=== PATIENT | female | born 1975 | race Caucasian/White ===

== ENCOUNTER 2017-02-02 12:53 | Day surgery (SDC) | payer OTHER ==
[~2017-02-02] VITALS: Ht 165.1 cm; Wt 64.4 kg
[2017-02-02] VITALS (9 sets, daily range): BP systolic 98–112; BP diastolic 36–77; PULSE 54–66; TEMP 97–98.1
[~2017-02-02 12:53] MED LIST: CARAFATE 1GM1 G PO; CLARITIN 1010 MG/TAB PO; DEMEROL 50M50 MG/TAB PO; INFANTS AQU400 IU/ML PO; LIPITOR20 MG PO; NEXIUM 40MG40 MG PO; VITAMIN D1000 IU PO; ZOFRAN 4MG T4 MG/TAB PO
[2017-02-02] MEDS ORDERED: ZOFRAN8 MG PO (13:58)
[2017-02-02] MEDS ORDERED: NORCO 325 MG-51 TAB PO (13:59)
[2017-02-02] MEDS ORDERED: FIORICET 325 MG1 TA1 PO (14:02)
== END 2017-02-02 17:05 | disposition home or self-care (01) ==
LOC: SDCO 12:53
DX: K31.5 Obstruction of duodenum (principal); K83.8 Other specified diseases of biliary tract; K31.9 Disease of stomach and duodenum, unspecified; E78.00 Pure hypercholesterolemia, unspecified
CPT/HCPCS: C1727; C1769; J2704; J2765; J7030; Q9967

== ENCOUNTER 2018-01-17 13:22 | Day surgery (SDC) | payer OTHER ==
[~2018-01-17] VITALS: Ht 165.1 cm; Wt 64.9 kg
[2018-01-17] VITALS (7 sets, daily range): BP systolic 104–118; BP diastolic 44–74; PULSE 60–83; TEMP 98–98.4
[~2018-01-17 13:22] MED LIST changes: +FIORICET 325 MG1 TA1 PO; +MASON NATURAL2000 IU PO; +NORCO 325 MG-51 TAB PO; -VITAMIN D1000 IU PO; +ZOFRAN8 MG PO
[2018-01-17] MEDS ORDERED: PAMELOR 25MG25 MG PO (13:37)
[2018-01-17] MEDS ORDERED: ZYRTEC 10MG10 MG PO (13:38)
[2018-01-17] MEDS ORDERED: PRILOSEC 20MG20 MG PO (13:39)
== END 2018-01-17 17:07 | disposition home or self-care (01) ==
LOC: SDCO 13:22
DX: K31.5 Obstruction of duodenum (principal); K83.1 Obstruction of bile duct; K31.89 Other diseases of stomach and duodenum; K59.00 Constipation, unspecified; E78.00 Pure hypercholesterolemia, unspecified; I34.1 Nonrheumatic mitral (valve) prolapse; R53.83 Other fatigue; Z90.49 Acquired absence of other specified parts of digestive tract; K21.9 Gastro-esophageal reflux disease without esophagitis; G43.909 Migraine, unspecified, not intractable, without status migrainosus; Z88.8 Allergy status to other drugs, medicaments and biological substances; Z88.5 Allergy status to narcotic agent
CPT/HCPCS: C1769; J2250; J2704; J2765; J3010; J7120; Q9967

== ENCOUNTER 2018-11-16 13:52 | Day surgery (SDC) | payer OTHER ==
[~2018-11-16] VITALS: Ht 165.1 cm; Wt 65.3 kg
[2018-11-16] VITALS (7 sets, daily range): BP systolic 98–123; BP diastolic 37–75; PULSE 57–64; TEMP 97.7–98.4
[~2018-11-16 13:52] MED LIST changes: +PAMELOR 25MG25 MG PO; +PRILOSEC 20MG20 MG PO; +ZYRTEC 10MG10 MG PO
[2018-11-16] MEDS ORDERED: NEXIUM 40MG40 MG PO (14:13)
[2018-11-16] MEDS ORDERED: NORCO 325 MG-51 TAB PO (14:14)
[2018-11-16] MEDS ORDERED: CLARITIN 1010 MG/TAB PO (14:18)
[2018-11-16] MEDS ORDERED: LIPITOR20 MG PO (14:18)
[2018-11-16] MEDS ORDERED: FIORICET 325 MG1 TA1 PO (14:23)
[2018-11-16] MEDS ORDERED: VITAMIN D 1001000 IU PO (14:25)
--- NOTE | 2018-11-16 15:42 | NUR ---
TO [facility]AY 4 VIA CART FROM ENDO ROOM, WALKED TO CHAIR, IN ROOM. PT IS ALERT, STATES PAIN TO UPPER ABD IS A 3/10. CALL LIGHT IN REACH.
--- NOTE | 2018-11-16 16:15 | NUR ---
PT STATES PAIN IS INCREASING RATES UPPER ABD PAIN THAT GOES TO BACK AT A 6, DR RICH IN ROOM ORDERS GIVEN, PT GIVEN FENTANYL 50MCG IV OVER 3 MIN. PT SITS UP IN CHAIR, REPORT GIVEN TO RAMESH BRODY.
--- NOTE | 2018-11-16 16:25 | NUR ---
Report received from MARY GRACE Olivares. Patient is resting in room. Says that her pain is slightly better after Fentanyl PRN dose. Will re-check pain rating. VSS and WNL on room air.
--- NOTE | 2018-11-16 16:55 | NUR ---
VSS and WNL on room air. Resting comfortably in room.
--- NOTE | 2018-11-16 16:56 | NUR ---
Patient rates her pain as a 4/10 and "tolerable". Offered and receives water to sip.
--- NOTE | 2018-11-16 17:25 | NUR ---
VSS and WNL on room air. Patient states pain is "off and on" and tolerable. She has met discharge criteria. Discharge instructions discussed, denies any questions, and verbalizes understanding. PIV removed with catheter intact and hemostasis achieved. Patient is changing to clothing independently.
--- NOTE | 2018-11-16 17:41 | NUR ---
Patient escorted to exit via wheelchair. Discharged to home with ride in private vehicle at 1741.
== END 2018-11-16 17:41 | disposition home or self-care (01) ==
LOC: SDCO 13:52
DX: K83.1 Obstruction of bile duct (principal); K83.8 Other specified diseases of biliary tract; K59.00 Constipation, unspecified; E78.00 Pure hypercholesterolemia, unspecified; I34.1 Nonrheumatic mitral (valve) prolapse; R19.7 Diarrhea, unspecified; K21.9 Gastro-esophageal reflux disease without esophagitis; G43.909 Migraine, unspecified, not intractable, without status migrainosus; Z90.49 Acquired absence of other specified parts of digestive tract; Z88.8 Allergy status to other drugs, medicaments and biological substances
CPT/HCPCS: C1769; J2704; J3010; J7120; Q9967

== ENCOUNTER 2019-02-08 11:21 | Emergency (ER) | payer OTHER ==
[~2019-02-08] VITALS: Ht 165.1 cm; Wt 66.4 kg
[~2019-02-08 11:21] MED LIST changes: +VITAMIN D 1001000 IU PO
[2019-02-08 11:28] VITALS: BP 128/69
[2019-02-08 11:57] LABS: COLLECTION METHOD CLEAN CATCH
[2019-02-08 12:05] LABS: PH 7 (5-8); SQUAMOUS EPITHELIAL 0-2 /hpf; URINE APPEARANCE Clear; URINE BACTERIA None Seen /hpf; URINE BILIRUBIN Negative (NEGATIVE); URINE BLOOD Negative (NEGATIVE); URINE COLOR Yellow; URINE GLUCOSE Negative (NEGATIVE); URINE KETONE Negative (NEGATIVE); URINE LEUKOCYTE ESTERASE Negative (NEGATIVE); URINE NITRATE Negative (NEGATIVE); URINE PROTEIN(semi-quant) Negative (NEGATIVE); URINE RBC 0-2 /hpf; URINE UROBILINOGEN Negative (NEGATIVE)
[2019-02-08 12:06] LABS: BASO # 0.1 (0.0-0.2); BASO % 0.7 % (0.0-2.0); EOS # 0.1 (0.0-0.7); EOS % 0.9 % (0-4.0); GRAN # 4.5 (1.4-6.5); GRAN % 52.7 % (42.2-75.2); HEMATOCRIT 43.3 % (37.0-47.0); HEMOGLOBIN 14.8 g/dl (12.5-16.0); LYMPH # 3.2 (1.2-3.4); LYMPH % 36.9 % (20.0-51.0); MEAN CELL VOLUME 90 fl (80.0-100.0); MEAN CORPUSCULAR HEMOGLOBIN 31 pg (27.0-31.0); MEAN CORPUSCULAR HGB CONC 34 g/dl (33.0-37.0); MEAN PLATELET VOLUME 8.9 fl (7.4-10.4); MONO # 0.7 (0.1-0.6); MONO % 8.1 % (1.7-9.3); PLATELET COUNT 353 K/mm3 (130-400); RED BLOOD COUNT 4.82 M/mm3 (4.10-5.30); REDCELL DISTRIBUTION WIDTH-CV 11.3 % (11.5-14.5)
[2019-02-08 12:15] LABS: ALBUMIN 4.8 gm/dL (3.5-5.0); BILIRUBIN,TOTAL 0.3 mg/dL (0.0-1.0); C-REACTIVE PROTEIN 0.5 mg/dL (0.0-0.9); CREATININE, serum 0.7 (0.52-1.25); MAGNESIUM 2.1 mg/dL (1.6-2.3); POTASSIUM 3.5 mmol/L (3.4-5.0); TOTAL PROTEIN 8.8 gm/dL (6.4-8.2)
[2019-02-08 14:40] VITALS: PULSE 70; TEMP 97.9
== END 2019-02-08 14:40 | disposition home or self-care (01) ==
LOC: COL.ER 11:21
PROVIDERS: Emergency Medicine
DX: R10.0 Acute abdomen (principal); Z90.49 Acquired absence of other specified parts of digestive tract; Z98.51 Tubal ligation status; Z87.19 Personal history of other diseases of the digestive system
CPT/HCPCS: J1170; J2405; J7030